=== PATIENT | female | born 1955 ===

== ENCOUNTER 2018-10-25 09:11 | Emergency (ER) | payer MEDICAID ==
--- NOTE | 2018-10-25 10:19 | C.PDOC ---
History Of Present Illness 63 year old female with PMHx of Diabetes and HTN presents to the ED complaining of congestion, shortness of breath, and cough for one week. Notes she hears a wheezy noise coming out of chest. Also reports subjective fever for 2 days. States she has been taking Tylenol. Denies sore throat, but notes scratchy throat. Denies any headache, chest pain, abdominal pain, neck pain, nausea, vomiting, or any other associated symptoms. Denies sick contacts or recent travels. Denies getting flu vaccination this season. PMD: Dr. Zurdo Bello Time Seen by Provider: 10/25/18 09:50 Chief Complaint (Nursing): Cough, Cold, Congestion History Per: Patient History/Exam Limitations: no limitations Onset/Duration Of Symptoms: Days Current Symptoms Are (Timing): Still Present Sick Contacts (Context): None Associated Symptoms: Fever, Cough, Nasal Congestion. denies: Nausea, Vomiting Past Medical History Reviewed: Historical Data, Nursing Documentation, Vital Signs Vital Signs: Last Vital Signs Temp 98 F 10/25/18 09:36 Pulse 120 H 10/25/18 09:56 Resp 19 10/25/18 09:56 BP 129/86 10/25/18 09:56 Pulse Ox 96 10/25/18 09:56 Primary Care Provider: Shahnaz Bello - Medical History PMH: HTN, Hypercholesterolemia, Hypothyroidism Surgical History: Cholecystectomy (Laparoscopic) Family History: States: No Known Family Hx - Social History Hx Alcohol Use: Yes Hx Substance Use: No - Immunization History Hx Tetanus Toxoid Vaccination: Yes (09/2018) Hx Influenza Vaccination: No Hx Pneumococcal Vaccination: Yes (09/2018) Review Of Systems Except As Marked, All Systems Reviewed And Found Negative. Constitutional: Positive for: Fever ENT: Positive for: Nose Congestion. Negative for: Throat Pain Cardiovascular: Negative for: Chest Pain Respiratory: Positive for: Cough, Shortness of Breath Gastrointestinal: Negative for: Nausea, Vomiting, Abdominal Pain Musculoskeletal: Negative for: Neck Pain Neurological: Negative for: Headache Physical Exam - Physical Exam Appears: Non-toxic Skin: Warm, Dry, No Rash Head: Normacephalic Eye(s): bilateral: Normal Inspection Ear(s): Bilateral: Normal Nose: Normal Oral Mucosa: Moist Tongue: Normal Appearing Lips: Normal Appearing Teeth: Normal Dentition Gingiva: Normal Appearing Throat: Normal, No Erythema, No Exudate Neck: Supple Chest: Symmetrical Cardiovascular: Rhythm Regular, Other (tachycardic ) Respiratory: No Rales, No Rhonchi, Wheezing (mild bilateral wheezing ) Neurological/Psych: Oriented x3, Normal Speech Gait: Steady ED Course And Treatment - Laboratory Results Result Diagrams: 10/25/18 10:46 10/25/18 10:46 ECG: Interpreted By Me, Viewed By Me ECG Rhythm: Sinus Tachycardia Interpretation Of ECG: No ST elevations or depressions Rate From EC O2 Sat by Pulse Oximetry: 96 (RA) Pulse Ox Interpretation: Normal - Other Rad CXR X-Ray: Viewed By Me, Read By Radiologist Interpretation: Accession No. : [id number]. Patient Name / ID : JUANJOSE POOLE / [id number]. Exam Date : 10/25/2018 10:28:39 ( Approved ). Study Comment : Sex / Age : F / 63Y. Creator : Regina Dos Santos. Dictator : Arlin Russell MD. Conservation Specialist : Florist : Arlin Russell MD. Approver2 : Report Date : 10/25/2018 10:38:51. My Comment : . Date of service: 10/25/2018. PROCEDURE: CHEST RADIOGRAPH, 1 VIEW. HISTORY: SOB. COMPARISON: None available. FINDINGS: LUNGS: The lungs are well inflated and clear. PLEURA: No pneumothorax or pleural effusion. CARDIOVASCULAR: The heart is normal in size. No aortic ath erosclerotic calcifications present. OSSEOUS STRUCTURES: Within normal limits for the patient's age. VISUALIZED UPPER ABDOMEN: Normal. OTHER FINDINGS: None. IMPRESSION: No active pulmonary disease. Medical Decision Making Medical Decision Making: Plan - EKG - Bloodwork - CXR - IV fluids - Influenza A B stat - UA Disposition Counseled Patient/Family Regarding: Studies Performed, Diagnosis, Need For Followup, Rx Given - Disposition Referrals: Shahnaz Bello MD [Medical Doctor] - Disposition: HOME/ ROUTINE Disposition Time: 16:01 Condition: IMPROVED Prescriptions: Albuterol HFA [Ventolin HFA 90 mcg/actuation (8 g)] 2 puff IH [id number] PRN #1 inh PRN Reason: Wheezing Prednisone [Deltasone] 60 mg PO DAILY #15 tablet Instructions: Acute Bronchitis Forms: [facility] (Peruvian), General Discharge Instructions - POA Present On Arrival: None - Clinical Impression Clinical Impression: Bronchospasm - Scribe Statement The provider has reviewed the documentation as recorded by the Scribe Ariela Gupta All medical record entries made by the Scribe were at my direction and personally dictated by me. I have reviewed the chart and agree that the record accurately reflects my personal performance of the history, physical exam, medical decision making, and the department course for this patient. I have also personally directed, reviewed, and agree with the discharge instructions and disposition.
[2018-10-25] MEDS ORDERED: Sodium Chloride 0.9% 1,000 ML IV ONE (10:21)
--- NOTE | 2018-10-25 10:46 | RAD ---
Date of service: 10/25/2018 PROCEDURE: CHEST RADIOGRAPH, 1 VIEW HISTORY: SOB COMPARISON: None available. FINDINGS: LUNGS: The lungs are well inflated and clear. PLEURA: No pneumothorax or pleural effusion. CARDIOVASCULAR: The heart is normal in size. No aortic atherosclerotic calcifications present. OSSEOUS STRUCTURES: Within normal limits for the patient's age. VISUALIZED UPPER ABDOMEN: Normal. OTHER FINDINGS: None. IMPRESSION: No active pulmonary disease.
[2018-10-25 10:53] LABS: BASO # 0.1 K/uL (0.0-0.2); BASO % 1.3 % (0.0-2.0); EOS # 0.2 K/uL (0.0-0.7); EOS % 2.6 % (0.0-4.0); HEMOGLOBIN 15.8 g/dL (11.0-16.0); LYMPH # 3.7 K/uL (1.0-4.3); LYMPH % 49.1 % (20.0-40.0); MEAN CELL VOLUME 87.6 fL (81.0-99.0); MEAN CORPUSCULAR HEMOGLOBIN 30.2 pg (27.0-31.0); MEAN CORPUSCULAR HGB CONC 34.4 g/dL (33.0-37.0); MEAN PLATELET VOLUME 7.8 fL (7.2-11.7); MONO # 0.6 K/uL (0.0-0.8); MONO % 7.8 % (0.0-10.0); NEUT # 2.9 K/uL (1.8-7.0); NEUT % 39.2 % (50.0-75.0); NRBC % 0.1 % (0.0-2.0); RBC 5.24 Mil/uL (3.80-5.20); RED CELL DISTRIBUTION WIDTH 14.1 % (11.5-14.5); WHITE BLOOD COUNT 7.5 K/uL (4.8-10.8)
[2018-10-25] MEDS ORDERED: Sodium Chloride 0.9% 1,000 ML ONE (10:57)
[2018-10-25 11:22] LABS: ALB/GLOB RATIO 1.4 (1.0-2.1); ALBUMIN 5.1 g/dL (3.5-5.0); ALT/SGPT 75 U/L (9-52); AST/SGOT 83 U/L (14-36); BLOOD UREA NITROGEN 15 mg/dL (7-17); CALCIUM 10.4 mg/dl (8.6-10.4); GFR NON-AFRICAN AMERICAN > 60
[2018-10-25 11:28] LABS: B-TYPE NATRIURETIC PEPTIDE < 11.1 pg/mL (0-900)
[2018-10-25 11:52] LABS: SQUAMOUS EPITHIAL < 1 /hpf (0-5); URINE BILIRUBIN NEGATIVE (NEGATIVE); URINE BLOOD 1+ (NEGATIVE); URINE CLARITY Clear (Clear); URINE COLOR Straw (YELLOW); URINE GLUCOSE (UA) NORMAL (Normal); URINE LEUKOCYTE ESTERASE NEG Leu/uL (Negative); URINE PROTEIN NEGATIVE (NEGATIVE); URINE UROBILINOGEN NORMAL mg/dL (0.2-1.0)
[2018-10-25] MEDS ORDERED: Albuterol 0.083% Inhal Sol (2.5 mg/3 mL) UD ONE (13:08)
[2018-10-25] MEDS: Albuterol 0.083% Inhal Sol (2.5 mg/3 mL) UD INH SCH (13:15)
[2018-10-25 16:02] VITALS: BP 123/77; PULSE 85; RESP 16; TEMP 98.5
[2018-10-25 16:05] VITALS: O2SAT 96
== END 2018-10-25 16:16 | disposition home or self-care (01) ==
LOC: C.ER 09:11
DX: J98.01 Acute bronchospasm (principal); I10 Essential (primary) hypertension; E11.9 Type 2 diabetes mellitus without complications; E78.00 Pure hypercholesterolemia, unspecified
CPT/HCPCS: 71045; 80053; 81001; 83880; 84443; 84484; 85025; 87804; 96360; 99285; J7030